=== PATIENT | female | born 1995 | race Caucasian/White ===

== ENCOUNTER 2022-02-13 17:03 | Emergency (ER) | payer SELFPAY ==
[2022-02-13 17:40] VITALS: BP 118/87; PULSE 68; RESP 17; TEMP 98.2; BMI 24.6
[2022-02-13] MEDS ORDERED: ACETAMINOPHEN 500 MG TABLET (FP) PO ONE (18:14)
[2022-02-13] MEDS ORDERED: ACETAMINOPHEN 500 MG TABLET (FP) ONE ×2 (18:22→18:30)
[2022-02-13 19:56] LABS: BASO % 0.3 % (0-2.0); EOS % 4.5 % (0-4.5); HEMATOCRIT 36.2 % (32.4-45.2); HEMOGLOBIN 12.5 GM/dL (10.7-15.3); LYMPH % 31.7 % (8-40); MCHC 34.5 g/dl (32.0-36.0); MEAN PLT VOLUME 9.4 fl (7.5-11.1); MONO % 6.1 % (3.8-10.2); NEUT % 57.4 % (42.8-82.8); PLATELET COUNT 243 10^3/uL (134-434); RBC 4.16 M/mm3 (3.60-5.2); RDW 13.2 % (11.6-15.6); WHITE BLOOD COUNT 7.5 K/mm3 (4.0-10.0)
[2022-02-13 20:08] LABS: CALCIUM 9.1 mg/dL (8.5-10.1)
[2022-02-13 20:09] LABS: BLOOD UREA NITROGEN 7.3 mg/dL (7-18)
[2022-02-13 20:12] LABS: CREATININE 0.5 mg/dL (0.55-1.3)
== END 2022-02-13 23:42 | disposition home or self-care (01) ==
LOC: JER 17:03
DX: O36.4XX0 Maternal care for intrauterine death, not applicable or unspecified (principal); Z3A.10 10 weeks gestation of pregnancy
CPT/HCPCS: 36415; 76817-TC; 80048; 84702; 85025; 86850; 86900; 86901; 87086; 99284-25